=== PATIENT | male | born 1995 | race Caucasian/White ===

== ENCOUNTER → 2017-05-20 | Outpatient (CLI) | payer OTHER ==
[~2017-05-20] MED LIST: ADVIN25/60 INH; ALBUAER19 INH; FLNIN/ NAE; LORA24TA7 PO; MONT1TAB3 PO; MULT-506 PO
== END | disposition home or self-care (01) ==
LOC: C.LAB 02:34
DX: Z02.83 Encounter for blood-alcohol and blood-drug test (principal)